=== PATIENT | male | born 1995 | race American Indian/Alaskan Native ===

== ENCOUNTER → 2023-08-05 11:21 | Outpatient (CLI) | payer OTHER, SELFPAY ==
--- NOTE | 2023-08-05 | DI.US.S_ITS ---
PROCEDURE: US ABDOMEN COMPLETE INDICATIONS: Generalized abdominal pain TECHNIQUE: Real-time scanning was performed of the abdominal and retroperitoneal organs, with image documentation. COMPARISON: None. FINDINGS: Liver: Liver is normal in size and homogeneous in echotexture. Gallbladder: Distended gallbladder containing sludge. No cholelithiasis.. No wall thickening. No pericholecystic edema. Negative sonographic Dalton's sign. Biliary ducts: Intrahepatic bile ducts are non-dilated. Extrahepatic bile duct caliber measures 6.0 mm. Normal is 6-7 mm or less in diameter, or 10 mm or less post-cholecystectomy. Pancreas: Visualized portions of the pancreas are sonographically normal. Right Kidney: Normal in size and echotexture, without hydronephrosis. No solid masses. IVC: Intrahepatic inferior vena cava is patent where visualized. Miscellaneous: No free abdominal fluid. IMPRESSION: Sludge filled gallbladder without sonographic evidence of acute cholecystitis. Approved by: Poornima Kohler M.D. on 08/06/2023 at 0:08
== END ==
PROVIDERS: Referring Provider Family Medicine; Visit Provider Family Medicine
DX: R10.84 Generalized abdominal pain (principal); K82.8 Other specified diseases of gallbladder
CPT/HCPCS: 76700